=== PATIENT | male | born 1965 | race Caucasian/White ===

== ENCOUNTER 2016-10-08 18:28 | Observation (INO) | payer OTHER ==
[~2016-10-08] VITALS: Ht 170.2 cm; Wt 75.9 kg
--- NOTE | ~2016-10-08 | HEMODYNAMI ---
PATIENT:JOSE RIVAS I MEDICAL RECORD: [id number] : 65 [id number] ADMISSION DATE: 10/08/16 Generatedon:10/09/201610:57 Patient name: JOSE RIVAS Patient #: [id number] : 1965 Date of study: 10/09/2016 Page: Of Hemodynamic Procedure Report Patient Data Patient Demographics Procedure consent was obtained First Name: JOSE Gender: Male Last Name: EVELYN : 1965 Middle Initial: H I Age: 51 year(s) Patient #: [id number] Race: SSN: [id number] Additional ID: [id number] Contact details Address: [address] [place] [address] State: [place] City: [place] Zip code: [address] Admission Admission Data Admission Date: 10/08/2016 Admission Time: 20:57 Arrival Date: 10/08/2016 Arrival Time: 20:57 Admit Source: Other Insurance Payor: None Room #: D.2114 Lab Results Lab Result Date: 10/09/2016 Lab Result Time: 0:00 Biochemistry Name Units Result Min Max BUN mg/dl 8 --(*---)-- 7 18 Creatinine mg/dl 0.9 --(-*--)-- 0.6 1.3 CBC Name Units Result Min Max Hemoglobin g/dl 15.1 --(-*--)-- 13.5 17.5 Procedure Procedure Types Cath Procedure Diagnostic Procedure LHC LHC w/Coronaries Miscellaneous Procedures Moderate Sedation up to 30 minutes Procedure Description Procedure Date Procedure Date: 10/09/2016 Procedure Start Time: 10:43 Procedure End Time: 10:54 Procedure Staff Name Function Scout Gracia MD Performing Physician Nilda Flaherty RN Nurse Carrie Gamez RT Monitor Norbert Delgado RT Scrub Procedure Data Cath Procedure Fluoroscopy Diagnostic fluoroscopy Total fluoroscopy Time: 1.5 time: 1.5 min min Diagnostic fluoroscopy Total fluoroscopy dose: 287 dose: 287 mGy mGy Contrast Material Contrast Material Type Amount (ml) Isovue 370 56 Entry Location Entry Primary Successful Side Size Upsize Upsize Entry Closure Holden ccessful Closure Location (Fr) 1 (Fr) 2 (Fr) Remarks Device Remarks Radial Right 6 Fr Mechanical artery Short Compression Estimated blood loss: 5 ml Diagnostic catheters Device Type Used For End Catheter Placement Terumo Optitorque 5Fr Multi-vessel Homer 4.5 catheter Angiography Procedure Complications No complications Procedure Medications Medication Administration Route Dosage Oxygen NC 2 l/min Heparin Flush Bag added to field 2 bags (1000units/500ml NS) Lidocaine 2% added to field 20 Radial Cocktail added to field 1 syringe (Verapomil 2mg/Nitro 400mcg/Heparin 1500units) Versed I.V. 1 mg Fentanyl I.V. 50 mcg Versed I.V. 1 mg Fentanyl I.V. 50 mcg Radial Cocktail I.A. 1 syringe (Verapomil 2mg/Nitro 400mcg/Heparin 1500units) Fentanyl I.V. 50 mcg Fentanyl I.V. 50 mcg Hemodynamics Rest HGB: 15.1 (g/dl) Heart Rate: 49 (bpm) Pressure Samples Time Site Value (mmHg) Purpose Heart Use Rate(bpm) 10:48 LV 72/12,12 Snapshot 73 10:48 AO 84/60(73) Pullback 70 10:48 LV 91/12,14 Pullback 70 Gradients Valve Time Site 1 Site 2 Mean SEP/DFP Peak To Heart Use (mmHg) (sec/min) Peak Rate (mmHg) (bpm) Aortic 10:48 LV AO 3 9 7 70 91/12,14 84/60(73) Calculations Valve P-P Mean Valve Index Valve Source Name Gradient Area Flow (cm2) Aortic 7 3 7 3 Snapshots Pre Cath Intra NCS Post Cath Vital Signs Time Heart Resp SPO2 etCO2 [id number] NIBP (mmHg) Rhythm Pain Sedation Rate (ipm) (%) (mmHg) (mmHg) Status Level (bpm) 10:28:06 48 14 100 0 0 146/85(104) NSR 0 (11) 10(A) , No pain 10:32:20 57 17 100 0 0 129/86(103) NSR 0 (11) 10(A) , No pain 10:36:30 53 14 100 0 0 133/76(118) NSR 0 (11) 10(A) , No pain 10:40:39 58 16 100 0 0 108/79(89) NSR 0 (11) 10(A) , No pain 10:44:45 53 16 98 0 0 105/63(79) NSR 0 (11) 10(A) , No pain 10:48:51 61 16 95 0 0 101/59(70) NSR 0 (11) 9(A) , No pain 10:52:53 58 16 97 0 0 104/66(77) NSR 0 (11) 9(A) , No pain 10:54:41 57 16 97 0 0 105/63(97) NSR 0 (11) 9(A) , No pain Medications Time Medication Route Dose Verified Delivered Reason Notes Effectiveness by by 10:27:56 Oxygen NC 2 l/min Scout Nilda Per SamiaHernán Flaherty RN physician 10:28:05 Heparin Flush added 2 bags Scout Zaavlaory used for Bag to Samia Minneola procedure (1000units/500ml field MD CHAVIRA NS) 10:28:21 Lidocaine 2% added 20ml Scout Scout used for to vial Minneola Samia procedure field MD CHAVIRA 10:33:19 Radial Cocktail added 1 Scout Scout used for (Verapomil to syringe Minneola Minneola procedure 2mg/Nitro field MD CHAVIRA 400mcg/Heparin 1500units) 10:39:40 Versed I.V. 1 mg Scout Nilda used for MinneolaHernán Flaherty almond cutting machine tender 10:39:58 Fentanyl I.V. 50 mcg Scout Nilda used for MinneolaHernán Flaherty almond cutting machine tender 10:41:49 Versed I.V. 1 mg Scout Nilda used for MinneolaHernán Flaherty almond cutting machine tender 10:41:56 Fentanyl I.V. 50 mcg Scout Nilda used for MinneolaHernán Flaherty almond cutting machine tender 10:44:00 Fentanyl I.V. 50 mcg Scout Nilda for sedation MinneolaHernán Flaherty RN, MD 10:46:11 Fentanyl I.V. 50 mcg Scout Nilda for sedation [facility]. Hernán Flaherty RN, MD 10:46:36 Radial Cocktail I.A. 1 Scout Scout for (Verapomil syringe Minneola Samia vasodilation 2mg/Nitro MD CHAVIRA 400mcg/Heparin 1500units) Procedure Log Time Note 10:02:08 Norbert Delgado RT(R) sent for patient. Start room use. 10:02:09 Time tracking: Regular hours 10:02:13 Plan of Care:Hemodynamics will remain stable., Cardiac rhythm will remain stable., Comfort level will be maintained., Respiratory function will remain adequate., Patient/ family verbilizes understanding of procedure., Procedure tolerated without complication., Recovers from procedure without complications.. 10:16:23 Diagnostic Cath Status : Elective 10:17:26 Informed consent obtained and on chart 10:17:34 Admit Source: Other 10:17:39 Arrival Date: 10/08/2016 8:57:00 PM 10:18:08 Insurance Payor : None 10:18: Lab Result : BUN 8 mg/dl 10:18:31 Lab Result : Hemoglobin 15.1 g/dl 10:18:31 Lab Result : Creatinine 0.9 mg/dl 10:22:54 Patient received from Med II to CCL 1 Alert and oriented. Tansferred to table in Supine position. 10:22:56 Warm blankets applied, and rigo hugger turned on for patient comfort. 10:22:56 Correct patient and procedure confirmed by team. 10:22:57 ECG and BP/O2 sat monitors applied to patient. 10::57 Vital chart was started 10:27:56 Oxygen 2 l/min NC was administered by Nilda Flaherty RN; Per physician; 10:28:05 Heparin Flush Bag (1000units/500ml NS) 2 bags added to field was administered by Scout Gracia MD; used for procedure; 10:28:21 Lidocaine 2% 20ml vial added to field was administered by Scout Gracia MD; used for procedure; 10:30:57 Baseline sample Acquired. 10:31:01 Rhythm: sinus rhythm 10:31:06 Full Disclosure recording started 10:31:10 H&P Date Dictated: 10/09/2016 New H&P dictated by physician.. 10:31:12 Pre-procedure instructions explained to patient. 10:31:12 Pre-op teaching completed and patient verbalized understanding. 10:31:14 Family in waiting room. 10:31:15 Patient NPO since Midnight. 10:31:25 Is the patient allergic to Iodine/contrast media? No. 10:31:27 Was the patient premedicated? No 10:31:29 Is patient on blood thinner?No 10:31:31 Patient diabetic? No. 10:31:34 Previous problem with sedation/anesthesia? No ? 10:31:37 Snore? Yes 10:31:38 Sleep apnea? No 10:31:40 Deviated septum? No 10:31:40 Opens mouth fully? Yes 10:31:41 Sticks out tongue? Yes 10:31:43 Airway obstruction? No ? 10:31:48 Dentures? No ? 10:31:51 Pre procedure: right dorsailis pedis pulse 1+ Palpable, but thready & weak; easily obliterated 10:31:55 Patient pain scale 0/10 ?. 10:32:03 IV patent on arrival in left forearm with 0.9% NaCl at [facility]. 10:32:06 Lab results completed and on chart. 10:32:12 Right Radial & Right Groin area was prepped with chlora-prep and draped in sterile fashion 10:32:14 Alarms reviewed by R. N. 10:32:15 Sharps counted by scrub and verified by R.N. 10:33:19 Radial Cocktail (Verapomil 2mg/Nitro 400mcg/Heparin 1500units) 1 syringe added to field was administered by Scout Gracia MD; used for procedure; 10:37:34 Physician arrived 10:37:34 --------ALL STOP TIME OUT------ 10:37:35 Final Timeout: patient, procedure, and site verified with staff and physician. All members of the team are in agreement. 10:37:38 Right Radial & Right Groin site verified by team. 10:37:41 Physical assessment completed. ASA score P 2 - A patient with mild systemic disease as per Scout Gracia MD. 10:37:45 Sedation plan: IV Moderate Sedation Versed, Fentanyl 10:37:51 Use device set Radial Dx 10:37:52 Acist Syringe opened to sterile field. 10:37:52 Medline Cath Pack opened to sterile field. 10:37:53 Bag Decanter opened to sterile field. 10:37:53 Terumo 6Fr Slender Glidesheath opened to sterile field. 10:37:53 St Brad 260cm J .035 wire opened to sterile field. 10:37:54 Acist Hand Control opened to sterile field. 10:37:54 Acist Manifold opened to sterile field. 10:37:54 Tegaderm 4 x 4 opened to sterile field. 10:37:55 MBrace Wrist Support opened to sterile field. 10:39:40 Versed 1 mg I.V. was administered by Nilda Flaherty RN; used for procedure; 10:39:58 Fentanyl 50 mcg I.V. was administered by Nilda Flaheryt RN; used for procedure; 10:41:49 Versed 1 mg I.V. was administered by Nilda Flaherty RN; used for procedure; 10:41:56 Fentanyl 50 mcg I.V. was administered by Nilda Flaherty RN; used for procedure; 10:42:19 Procedure started. 10:43:23 Zero performed for pressure channel P1 10:43:32 Local anesthetic to right radial artery with Lidocaine 2% by Scout Gracia MD.INITIAL ACCESS ONLY 10:44:00 Fentanyl 50 mcg I.V. was administered by Nilda Flaherty RN; for sedation; 10:46:02 A 6 Fr Short sheath was inserted into the Right Radial artery 10:46:11 Fentanyl 50 mcg I.V. was administered by Nilda Flaherty RN; for sedation; 10:46:36 Radial Cocktail (Verapomil 2mg/Nitro 400mcg/Heparin 1500units) 1 syringe I.A. was administered by Scout Gracia MD; for vasodilation; 10:46:48 A TerTimeCast Optitorque 5Fr Homer 4.5 catheter was advanced over the wire and used for Multi-vessel Angiography. 10:48:19 LV hemodynamics recorded. 10:48:20 LV gram done using BARNES 10:48:24 Injector settings: Ml/sec: 5, Volume: 15, 10:48:31 EF : 55 % 10:48:49 LCA angiography performed. 10:49:18 Injector settings: Ml/sec: 3, Volume: 6, 10:50:41 RCA angiography performed. 10:50:44 Injector settings: Ml/sec: 3, Volume: 6, 10:50:55 Catheter removed. 10:51:11 Terumo TR Band Standard opened to sterile field. 10:52:20 Sheath removed intact; hemostasis achieved with Mechanical Compression to the Right Radial artery. 10:52:22 Procedure ended.(Physican Out) 10:52:36 Fluoroscopy time 01.50 minutes. 10:52:41 Flurop Dose total: 287 10:52:41 Fluoroscopy dose: 287 mGy 10:52:45 Contrast amount:Isovue 370 56ml. 10:52:46 Sharps counted by scrub and verified by R.N. 10:52:49 TR band inflated with 10cc of air. 10:52:51 Insertion/operative site no bleeding no hematoma. 10:53:04 Post-op/insertion site Right Radial artery dressed using a 4 x 4 and Tegaderm. 10:53:12 Post right radial artery:stable 10:53:14 Post Procedure Pulses reassessed and unchanged 10:53:17 Post procedure rhythm: unchanged. 10:53:25 Estimated blood loss: 5 ml 10:53:37 Post procedure instruction explained to patient.Patient verbalizes understanding. 10:53:53 Patient needs reinforcement of post procedure teaching. 10:54:15 Procedure type changed to Cath procedure, Diagnostic procedure, LHC, LHC w/Coronaries, Miscellaneous Procedures, Moderate Sedation up to 30 minutes 10:54:16 Procedure and supply charges have been captured, reviewed, submitted and are correct. 10:54:20 Procedure Complication : No complications 10:54:22 Vital chart was stopped 10:54:23 See physician's report for complete and final results. 10:54:26 Report given to [facility]. 10:54:29 Patient transfered to [facility] with Stretcher. 10:54:32 Procedure ended. 10:54:32 Full Disclosure recording stopped 10:54:36 End room use (Document Last) Device Usage Item Name Manufacture Quantity Catalog Hospital Part Current Minimal Lot# / Number Charge Number Stock Stock Serial# Code Acist Acist 1 14078 249977 047271 829137 20 Syringe Medical Systems Inc Medline Cardinal 1 [id number] 894007 59320 805636 5 Cath Pack Health Bag Microtek 1 2001S 322886 38267 573499 5 Dec[employer]ocutis [employer] Terumo 6Fr Terumo 1 [id number] 995877 462583 744468 [address] St Brad 1 261432 349424 719696 290392 30 260cm J .035 wire Acist Hand Acist 1 25426 747180 824770 427030 5 Control Medical Systems Inc Acist Acist 1 74480 697376 509148 305642 5 Manifold Medical Systems Inc Tegaderm 4 3M 1 1626W 476482 660567 771944 5 x 4 MBrace Advanced 1 140-0250-00 921247 46366 628762 5 Wrist Vascular Support Dynamics Terumo Terumo 1 79-6310 597206 132223 444525 5 Optitorque 5Fr Homer 4.5 catheter Terumo TR Terumo 1 [id number] 363144 653169 965829 40 Band Standard Signature Audit [place] Stage Time Signature Unsigned Intra-Procedure 10/09/2016 Carrie Gamez 10:57:17 AM RT(R) Signatures Monitor : Carrie Gamez RT Signature : Date : Time : [facility] [address] [place] [address]
[2016-10-08 19:18] LABS: BASOPHILS 0.3 % (0.0-2.0); EOSINOPHILS 2.3 % (0-7); HEMATOCRIT 44.7 % (42.0-54.0); HEMOGLOBIN 15.1 g/dL (13.5-17.5); IMMATURE GRANULOCYTES 0.4 % (0-5); LYMPHOCYTES 38.7 % (15-50); MCH 31.1 pg (26.0-34.0); MCHC 33.8 g/dL (31.0-37.0); MEAN PLATELET VOLUME 11.5 fL (7.4-10.4); MONOCYTES 8.1 % (2-11); NEUTROPHILS 50.2 % (40-80); PLATELET COUNT 172 10x3/uL (130-400); RBC 4.86 10x6/uL (4.20-6.10); RDW 13.6 % (11.5-14.5); WBC 7.5 10x3/uL (4.8-10.8)
[2016-10-08 19:36] LABS: ALBUMIN 3.7 g/dL (3.4-5.0); ALKALINE PHOSPHATASE 52 U/L (46-116); ALT (SGPT) 17 U/L (10-68); BILIRUBIN - TOTAL 0.25 mg/dL (0.2-1.3); CALC OSMOLALITY 278 mosm/kg (275-300); CALCIUM 8.9 mg/dL (8.5-10.1); CARBON DIOXIDE 26.9 mmol/L (21.0-32.0); CHLORIDE - SERUM 106 mmol/L (98-107); CREATININE - SERUM 0.9 mg/dL (0.6-1.3); GLUCOSE 92 mg/dL (74-106); POTASSIUM - SERUM 3.7 mmol/L (3.5-5.1); PROTEIN - SERUM 6.7 g/dL (6.4-8.2); SODIUM 141 mmol/L (136-145); UREA NITROGEN 8 mg/dL (7-18); eGFR NON AFRICAN AMERICAN > 90 mL/min (90-120)
[2016-10-08 19:47] LABS: CHOL - HDL RATIO 5.8 ratio (2.3-4.9); CHOLESTEROL, TOTAL 219 mg/dL (0-200); CKMB 0.5 U/L (0.0-3.6); CREATINE KINASE 72 UL (21-232); HDL CHOLESTEROL 38 mg/dL (32-96); LDL CHOLESTEROL 153 mg/dL (0-100); TRIGLYCERIDE 141 mg/dL (30-200)
[2016-10-08 19:49] LABS: TROPONIN-I < 0.017 ng/mL (0.000-0.060)
--- NOTE | 2016-10-08 21:30 | NUR ---
PT ARRIVES FROM ER VIA WC. PLACED ON TELEMETRY, SB-SR ON MONITOR - HR 50'S-60'S. DENIES ANY C/O PAIN ON ARRIVAL. VSS, AFEBRILE. RESP EVEN UNLABORED. ROOM AIR, SATS 98%. SMOKING CESSATION EDUCATION PROVIDED. ADMISSION HISTORY AND ASSESSMENT COMPLETED. PT STATES NOT TAKING ANY ROUTINE HOME MEDICATIONS. UNIT ROUTINES AND PROTOCOLS DSICUSSED, VERBALIZED UNDERSTANDING. IV TO LEFT AC WITH NS @ 75 CC/HR. CALL LIGHT PLACED WITHIN REACH. WILL CONT TO MONITOR.
[2016-10-08 21:38] VITALS: BP 135/83; Ht 170.2 cm; Wt 75.9 kg
--- NOTE | 2016-10-08 23:06 | NUR ---
PT RESTING QUIETLY WITHOUT C/O OR DISTRESS NOTED. FEW NEEDS VOICED. CALL LIGHT WITHIN REACH. WILL CONT TO MONITOR.
[2016-10-09] VITALS: BP 103/52
--- NOTE | 2016-10-09 03:01 | NUR ---
PT RESTING WELL, NO CHANGES NOTED IN ASSESSMENT. FEW NEEDS VOICED. CALL LIGHT WITHIN REACH. WILL CONT TO MONITOR.
[2016-10-09 04:00] VITALS: BP 100/52
[2016-10-09 08:12] VITALS: BP 96/51
[2016-10-09 10:03] LABS: BASOPHILS 0.4 % (0.0-2.0); EOSINOPHILS 1.7 % (0-7); HEMATOCRIT 42.6 % (42.0-54.0); HEMOGLOBIN 14.3 g/dL (13.5-17.5); IMMATURE GRANULOCYTES 0.4 % (0-5); LYMPHOCYTES 32.7 % (15-50); MCH 31.2 pg (26.0-34.0); MCHC 33.6 g/dL (31.0-37.0); MEAN PLATELET VOLUME 11.3 fL (7.4-10.4); MONOCYTES 7.1 % (2-11); NEUTROPHILS 57.7 % (40-80); PLATELET COUNT 164 10x3/uL (130-400); RBC 4.58 10x6/uL (4.20-6.10); RDW 13.6 % (11.5-14.5); WBC 7.7 10x3/uL (4.8-10.8)
--- NOTE | 2016-10-09 10:10 | NUR ---
CATH CALLED TO PRE-OP PT. PREOP MEDS GIVEN, CONSENTS SIGNED. PT ALREADY SPOKE WITH AND DENIES ANY QUESTIONS OR CONCERNS ABOUT PROCEDURE. WILL CTM.
[2016-10-09 10:18] LABS: CALC OSMOLALITY 280 mosm/kg (275-300); CALCIUM 8.2 mg/dL (8.5-10.1); CARBON DIOXIDE 26.5 mmol/L (21.0-32.0); CHLORIDE - SERUM 108 mmol/L (98-107); GLUCOSE 84 mg/dL (74-106); SODIUM 142 mmol/L (136-145); UREA NITROGEN 10 mg/dL (7-18); eGFR NON AFRICAN AMERICAN 84 mL/min (90-120)
[2016-10-09 10:19] LABS: TROPONIN-I < 0.017 ng/mL (0.000-0.060)
--- NOTE | 2016-10-09 11:21 | NUR ---
PT BACK IN ROOM FROM SLOT MACHINE FLOOR PERSON. PT HAS TR BAND TO R.WRIST NO S/S OF BLEEDING OR HEMATOMA NOTED. CATH WAS CLEAN. PT READY TO EAT LUNCH, TRAY HAS BEEN ORDERED. NO CURRENT NEEDS VSS AND BEING MONITERED WILL CPOC.
[2016-10-09 11:49] VITALS: BP 110/67
--- NOTE | 2016-10-09 15:31 | NUR ---
DEFLATED AIR FROM R.WRIST TR BAND PER POLICY. NO BLEEDING OR S/S OF HEMATOMA NOTED AFTER REMOVAL. PLACED BAND-AID OVER SITE. PT RESTING QUIETLY IN BED DENIES ANY CURRENT PAIN OR NEEDS. CL IN REACH. WILL CPOC.
[2016-10-09 15:51] VITALS: BP 116/69
[2016-10-09 20:57] VITALS: BP 129/79
[2016-10-10 00:30] VITALS: BP 137/77
[2016-10-10 04:30] VITALS: BP 119/64
[2016-10-10 05:52] LABS: BASOPHILS 0.1 % (0.0-2.0); EOSINOPHILS 1.7 % (0-7); HEMATOCRIT 45.1 % (42.0-54.0); HEMOGLOBIN 14.9 g/dL (13.5-17.5); IMMATURE GRANULOCYTES 0.4 % (0-5); LYMPHOCYTES 27.7 % (15-50); MCH 30.8 pg (26.0-34.0); MCV 93.4 fL (80.0-100.0); MEAN PLATELET VOLUME 12.2 fL (7.4-10.4); MONOCYTES 7.8 % (2-11); NEUTROPHILS 62.3 % (40-80); PLATELET COUNT 164 10x3/uL (130-400); RBC 4.83 10x6/uL (4.20-6.10); RDW 13.6 % (11.5-14.5); WBC 7.9 10x3/uL (4.8-10.8)
[2016-10-10 06:11] LABS: ALBUMIN 2.8 g/dL (3.4-5.0); ALKALINE PHOSPHATASE 48 U/L (46-116); ALT (SGPT) 17 U/L (10-68); CALC OSMOLALITY 275 mosm/kg (275-300); CALCIUM 8.2 mg/dL (8.5-10.1); CARBON DIOXIDE 26.4 mmol/L (21.0-32.0); CHLORIDE - SERUM 106 mmol/L (98-107); CREATININE - SERUM 0.9 mg/dL (0.6-1.3); GLUCOSE 110 mg/dL (74-106); POTASSIUM - SERUM 3.9 mmol/L (3.5-5.1); PROTEIN - SERUM 5.4 g/dL (6.4-8.2); SODIUM 138 mmol/L (136-145); UREA NITROGEN 10 mg/dL (7-18); eGFR NON AFRICAN AMERICAN > 90 mL/min (90-120)
--- NOTE | 2016-10-10 07:05 | NUR ---
SPOKE WITH DR PHOENIX THIS MORNING RE: DISCHARGE PER CARDIOLOGY. REVIEWED CTA WITH DR PHOENIX VIA PHONE. DR PHOENIX GIVES OK TO DISCHARGE PT HOME THIS AM. STATES OK TO HAVE PT FOLLOW UP WITH HER ON AN OUTPT BASIS IF PT DOES NOT HAVE A PCP. ORDER PLACED IN CPOE.
--- NOTE | 2016-10-10 07:10 | NUR ---
SPOKE WITH DR PHOENIX RE: D/C PT BY CARDIOLOGY. STATES OK TO DISCHARGE PT HOME AFTER PT HAS U/S GALLBLADDER SCHEDULED FOR THIS AM.
[2016-10-10 08:18] VITALS: BP 120/74
--- NOTE | 2016-10-10 09:58 | NUR ---
US GALLBLADDER COMPLETED AT BS. TELEMETRY SR. IV PATENT. WILL CONT. PLAN OF CARE.
[2016-10-10 12:42] VITALS: BP 134/82
--- NOTE | 2016-10-10 12:59 | NUR ---
IV AND TELEMETRY DCD. DC PLANS GIVEN. UNDERSTANDING VOICED. ESCORTED TO CAR BY W/C.
--- NOTE | 2016-10-11 12:40 | OP ---
PATIENT NAME: JOSE RIVAS I MEDICAL RECORD: [id number] :65 LOCATION:D.M2 D.2114 ADMISSION DATE:10/08/16 SURGEON: SANDEE DIAZ MD DATE OF OPERATION: 10/09/2016 PROCEDURE: Left heart catheterization, selective coronary angiography, right radial approach. CATHETERS: A 5-Kiswahili sheath, 5/4 left and right Johnathan, 5/4 pig. The procedure was well tolerated. The patient returned to the hayes, sheath removed. TR band was placed. FINDINGS: Left ventriculography in 30-degree BARNES view: Normal wall motion, normal systolic function. CORONARY ANATOMY: Left main: Left main is free of disease. LAD: Free of disease in the diagonal system. Circumflex: Free of disease in the marginal system. Right coronary artery: Dominant artery giving rise to the PDA, free of disease. IMPRESSION: Normal systolic function. Normal coronary anatomy. TRANSINT:[id number] Voice Confirmation ID: [id number] DOCUMENT ID: [id number] SANDEE DIAZ MD at 1240 CC: [id number] DICTATION DATE: 10/09/16 1057 COBBLER APPRENTICE: 10/09/16 1218 DIS IN 10/10/16 [facility] [address] [place] [address]
--- NOTE | 2016-10-11 12:40 | CN ---
PATIENT NAME:JOSE RIVAS I MEDICAL RECORD: [id number] : 65 LOCATION:[place] D.2114 ADMIT DATE: 10/08/16 ACCOUNT: [id number] CONSULTING PHYSICIAN: SANDEE DIAZ MD REFERRING PHYSICIAN: ONEIDA PHOENIX MD DATE OF CONSULTATION: 10/09/2016 HISTORY OF PRESENT ILLNESS: A 51-year-old gentleman with a questionable history of coronary artery disease. He has a history of KS approximately 20 years ago, has a history of pancreatitis. More recently, he has been having intermittent dyspnea on exertion and I felt this is secondary to smoking, had onset of chest pain yesterday, radiating to the back, accompanied by nausea. ECG without acute changes. Enzymes are negative. We are asked to see him concerning his cardiovascular status. PAST MEDICAL HISTORY: Includes history of coronary artery disease, diagnosed with what sounds angiographically approximately 20 years ago. No other major illnesses. ALLERGIES: None known. MEDICATIONS: None currently. SOCIAL HISTORY: Lives here in [place]. He smokes about a pack a day. He takes care of his ADLs. No set exercise program. REVIEW OF SYSTEMS: The patient reports easy bruising but reports no swollen glands. The patient reports no fever, no night sweats, no significant weight gain, no significant weight loss. No significant exercise tolerance. The patient reports no dry eyes, no irritation, no vision change. Patient reports no difficulty hearing and no ear pain. Patient reports no frequent nose bleeds or nose and sinus problems. Patient reports on arm pain on exertion. No shortness of breath while lying down. No history of heart murmur. Patient reports no cough, no wheezing or coughing up blood. Patient reports no abdominal pain, no vomiting. Normal appetite. No diarrhea and not vomiting blood. No nausea and no constipation. Patient reports no incontinence. No difficulty urinating. No hematuria. No increased frequency. Patient reports no muscle aches. No weakness, no arthralgias, no back pain. No swelling of the extremities. Patient reports no abnormal mole, no jaundice, no rashes. Reports no loss of consciousness. No weakness and no numbness. No seizures, dizziness, or headaches. The patient reports no depression, no sleep disturbance, feeling safe in a relationship and no alcohol abuse. Patient reports on fatigue. Reports no runny nose or sinus pressure. No itching, no hives, and no frequent sneezing. PHYSICAL EXAMINATION: GENERAL: Pleasant gentleman, in no acute distress, appears stated age. VITAL SIGNS: Blood pressure 96/51, pulse 56 and regular. HEENT: Normocephalic and atraumatic. NECK: No JVD or bruit. HEART: Regular. LUNGS: Mandel clear. EXTREMITIES: Pulses 2+. No edema. NEUROLOGIC: Grossly intact. CONSULT REPORT [id number] JOSE RIVAS I DIAGNOSTIC DATA: ECG without acute change. IMPRESSION: Progressive dyspnea as well as chest pain consistent with acute coronary syndrome. PLAN: For angiography, intervention based on the above. TRANSINT:[id number] Voice Confirmation ID: [id number] DOCUMENT ID: [id number] SANDEE DIAZ MD at 1240 CC: [id number] DICTATION DATE: 10/09/16 1019 MOUSE BREEDER: 10/09/16 1144 DIS IN 10/10/16 [facility] [id number] [place] [address]
== END 2016-10-10 13:00 | disposition home or self-care (01) ==
LOC: D.ER 18:28 → D.M2 20:57 → OBSVTIME 20:57 → D.M2 10-10 13:00
PROVIDERS: Emergency Medicine; Internal Medicine Interventional Cardiology; ADMIT Emergency Medicine
DX: R07.9 Chest pain, unspecified (principal); I25.10 Atherosclerotic heart disease of native coronary artery without angina pectoris; F17.203 Nicotine dependence unspecified, with withdrawal; Z85.9 Personal history of malignant neoplasm, unspecified

== ENCOUNTER 2017-09-03 21:27 | Emergency (ER) | payer SELFPAY ==
[2016-10-08 21:38] VITALS: BMI 26.7
[2017-09-03 22:14] LABS: BASOPHILS 0.2 % (0-2); EOSINOPHILS 3.1 % (0-7); HEMATOCRIT 45.1 % (42.0-54.0); HEMOGLOBIN 15.7 g/dL (13.5-17.5); IMMATURE GRANULOCYTES 0.2 % (0-5); LYMPHOCYTES 26.8 % (15-50); MCH 31.5 pg (26.0-34.0); MCHC 34.8 g/dL (31.0-37.0); MCV 90.4 fL (80.0-100.0); MEAN PLATELET VOLUME 11.6 fL (7.4-10.4); NEUTROPHILS 61.7 % (40-80); PLATELET COUNT 202 10x3/uL (130-400); RBC 4.99 10x6/uL (4.20-6.10); RDW 13.4 % (11.5-14.5); WBC 8.9 10x3/uL (4.8-10.8)
[2017-09-03 22:41] LABS: ALBUMIN 3.4 g/dL (3.4-5.0); ALKALINE PHOSPHATASE 71 U/L (46-116); ALT (SGPT) 20 U/L (10-68); CALC OSMOLALITY 279 mosm/kg (275-300); CALCIUM 8.4 mg/dL (8.5-10.1); CARBON DIOXIDE 24.6 mmol/L (21.0-32.0); CHLORIDE - SERUM 105 mmol/L (98-107); CREATININE - SERUM 1.3 mg/dL (0.6-1.3); GLUCOSE 106 mg/dL (74-106); POTASSIUM - SERUM 3.4 mmol/L (3.5-5.1); PROTEIN - SERUM 6.6 g/dL (6.4-8.2); SODIUM 140 mmol/L (136-145); UREA NITROGEN 14 mg/dL (7-18); eGFR NON AFRICAN AMERICAN 61 mL/min (90-120)
[2017-09-03 23:02] LABS: CKMB 0.3 U/L (0.0-3.6); CREATINE KINASE 48 UL (21-232); TROPONIN-I < 0.017 ng/mL (0.000-0.060)
== END 2017-09-04 00:05 | disposition home or self-care (01) ==
LOC: D.ER 21:27
PROVIDERS: Family Medicine
DX: R09.1 Pleurisy (principal); J20.9 Acute bronchitis, unspecified; F17.200 Nicotine dependence, unspecified, uncomplicated

== ENCOUNTER → 2018-09-22 12:17 | Outpatient (CLI) | payer OTHER ==
[2016-10-08 21:38] VITALS: BMI 26.7
[2018-09-22 13:25] LABS: APPEARANCE CLEAR (CLEAR); BILIRUBIN NEGATIVE (NEGATIVE); COLOR YELLOW (YELLOW); GLUCOSE NEGATIVE (NEGATIVE); KETONE NEGATIVE (NEGATIVE); NITRITE NEGATIVE (NEGATIVE); PROTEIN NEGATIVE (NEGATIVE); UROBILINOGEN NORMAL (NORMAL)
[2018-09-22 13:52] LABS: ALBUMIN 3.7 g/dL (3.4-5.0); ALKALINE PHOSPHATASE 60 U/L (46-116); ALT (SGPT) 19 U/L (10-68); BILIRUBIN - TOTAL 0.48 mg/dL (0.2-1.3); CALC OSMOLALITY 276 mosm/kg (275-300); CALCIUM 8.9 mg/dL (8.5-10.1); CARBON DIOXIDE 30.3 mmol/L (21.0-32.0); CHLORIDE - SERUM 103 mmol/L (98-107); CHOL - HDL RATIO 5.5 ratio (2.3-4.9); CHOLESTEROL, TOTAL 213 mg/dL (0-200); CREATININE - SERUM 0.9 mg/dL (0.6-1.3); GLUCOSE 89 mg/dL (74-106); HDL CHOLESTEROL 39 mg/dL (32-96); LDL CHOLESTEROL 147 mg/dL (0-100); LDL-HDL RATIO 3.8 ratio (1.5-3.5); POTASSIUM - SERUM 4.1 mmol/L (3.5-5.1); PROTEIN - SERUM 7.2 g/dL (6.4-8.2); SODIUM 140 mmol/L (136-145); THYROID STIMULATING HORMONE 1.64 uIU/mL (0.36-3.74); TRIGLYCERIDE 136 mg/dL (30-200); UREA NITROGEN 11 mg/dL (7-18); eGFR NON AFRICAN AMERICAN > 90 mL/min (90-120)
== END | disposition home or self-care (01) ==
LOC: D.RAD 12:17
PROVIDERS: ATTEND Family Medicine
DX: R35.0 Frequency of micturition (principal); G89.29 Other chronic pain; R06.00 Dyspnea, unspecified; I25.10 Atherosclerotic heart disease of native coronary artery without angina pectoris

== ENCOUNTER 2020-01-13 18:27 | Emergency (ER) | payer OTHER ==
[~2020-01-13] VITALS: Ht 170.2 cm; Wt 77.3 kg
[2020-01-13 18:35] VITALS: Ht 170.2 cm; Wt 77.3 kg
[2020-01-13 19:41] VITALS: BP 136/80
== END 2020-01-13 19:42 | disposition home or self-care (01) ==
LOC: D.ER 18:27
DX: M25.562 Pain in left knee (principal); M25.531 Pain in right wrist; W01.0XXA Fall on same level from slipping, tripping and stumbling without subsequent striking against object, initial encounter; Y93.9 Activity, unspecified; Y92.9 Unspecified place or not applicable

== ENCOUNTER 2020-04-14 22:49 | Emergency (ER) | payer OTHER ==
[~2020-04-14] VITALS: Ht 170.2 cm; Wt 79.5 kg
[2020-04-14 23:08] VITALS: Ht 170.2 cm; Wt 79.5 kg
[2020-04-14 23:31] LABS: HEMATOCRIT 44.5 % (42.0-54.0); HEMOGLOBIN 15.5 g/dL (13.5-17.5); LYMPHOCYTES 20.3 % (15-50); MCH 31.7 pg (26.0-34.0); MCHC 34.8 g/dL (31.0-37.0); MEAN PLATELET VOLUME 11.2 fL (7.4-10.4); NEUTROPHILS 70.5 % (40-80); PLATELET COUNT 185 10x3/uL (130-400); RBC 4.89 10x6/uL (4.20-6.10); RDW 13.1 % (11.5-14.5)
[2020-04-14 23:50] LABS: CALC OSMOLALITY 272 mosm/kg (275-300); CARBON DIOXIDE 23.5 mmol/L (21.0-32.0); CHLORIDE - SERUM 102 mmol/L (98-107); CREATININE - SERUM 1.1 mg/dL (0.6-1.3); GLUCOSE 119 mg/dL (74-106); SODIUM 135 mmol/L (136-145); UREA NITROGEN 19 mg/dL (7-18); eGFR NON AFRICAN AMERICAN 74 mL/min (90-120)
[2020-04-14 23:58] LABS: ALBUMIN 3.7 g/dL (3.4-5.0); ALKALINE PHOSPHATASE 58 U/L (30-120); ALT (SGPT) 17 U/L (10-68); AMYLASE - SERUM 38 U/L (25-115); LIPASE 101 U/L (73-393)
[2020-04-15] LABS: TROPONIN-I < 0.017 ng/mL (0.000-0.060)
[2020-04-15 00:16] LABS: BILIRUBIN NEGATIVE (NEGATIVE); KETONE NEGATIVE (NEGATIVE); NITRITE NEGATIVE (NEGATIVE); UROBILINOGEN NORMAL mg/dL (< 2)
[2020-04-15] MEDS ORDERED: HYDROCODON-ACE1 EA10 PO (01:34)
[2020-04-15 02:27] VITALS: BP 136/87
== END 2020-04-15 02:27 | disposition home or self-care (01) ==
LOC: D.ER 22:49
PROVIDERS: Family Medicine
DX: N20.0 Calculus of kidney (principal); R11.2 Nausea with vomiting, unspecified